=== PATIENT | female | born 1935 | race Caucasian/White ===

== ENCOUNTER 2016-05-15 09:30 | Inpatient (IN) | payer MEDICARE ==
[~2016-05-15] VITALS: Ht 162.6 cm; Wt 91.1 kg
[2016-05-15] VITALS (7 sets, daily range): BP systolic 120–162; BP diastolic 55–77; PULSE 31–58; RESP 12–22; O2SAT 94–97
--- NOTE | 2016-05-15 09:39 | ED.REPORT ---
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 She went to a doctor's appointment yesterday and was told she needs a pacemaker. Her heart rate is in the 40's. Associated symptoms include chest heaviness which increases with exertion. She feels like her legs are very heavy. She has had 3 recent episodes of LOC. Nursing Notes Stated Complaint: SOB Chief Complaint: Respiratory Distress Nursing Notes Reviewed: Yes Allergies: Coded Allergies: codeine (Verified Allergy, Unknown, 05/15/16) hydrocodone (Verified Allergy, Unknown, 05/15/16) thiethylperazine (Verified Allergy, Unknown, 05/15/16) Uncoded Allergies: GUAFENESIN (Allergy, Unknown, 05/15/16) Scheduled Aspirin (Aspirin) 81 Mg Tablet 81 MG PO DAILY Levothyroxine (Levothyroxine) 100 Mcg Tablet 100 MCG PO QAM Liothyronine Sodium (Liothyronine Sodium) 5 Mcg Tablet 10 MCG PO QPM Losartan/HCTZ 100-25 mg (Losartan/HCTZ 100-25 mg) 1 Each Tablet 1 EACH PO DAILY at 1300 General Time Seen by MD: 09:38 Chief Complaint Shortness of breath Hx Obtained From: Patient Arrived By: Walk-in Sudden in Onset?: Yes Onset Occurred: Yesterday Symptom Duration: Since onset Severity: Current: No pain currently Recent Healthcare: Recent doctor visit Similar Sx Previous: Yes Past Medical History Past Medical History 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 GI: Reports: Nausea Physical Exam Physical Exam Notes: Initial Vital Signs Vital Signs (First) Date Time Temp Pulse Resp B/P Pulse Ox O2 Delivery O2 Flow Rate FiO2 05/15/16 09:32 36.6 40 22 96 Room Air 05/15/16 11:19 130/63 Initial VS: Reviewed Head / Eyes: Atraumatic, Normocephalic, PERRL ENT: Mucous membranes moist, Conjunctiva normal Abdomen / GI: Soft, Non-tender, No guarding Extremities: Vascular intact, Neuro intact, No swelling Skin: Warm, Dry General/Constitutional: Awake, Alert Neck: Atraumatic, Supple, Non-tender Respiratory / Chest: Atraumatic, No rales, No rhonchi, No chest tenderness Cardiovascular: Regular rhythm, Heart sounds NL Heart Rate / Rhythm: Positive: Bradycardia Lower Extremity / Pelvis / MS: Inspection NL trace peripheral edema Interpretation & Diagnostics Lab Results Interpretation Result Diagram: 05/15/16 1008 05/15/16 1008 Test 05/15/16 10:08 White Blood Count 9.1th/mm3 (3.8-10.1) Red Blood Count 4.91mil/mm3 (3.90-5.20) Hemoglobin 14.4g/dL (12.0-15.6) Hematocrit 43.2% (35.0-46.0) Mean Corpuscular Volume 88.0fL (81-100) Mean Corpuscular Hemoglobin 29.3pg (27.0-35.0) Mean Corpuscular Hemoglobin Concent 33.3% (32.0-37.0) Red Cell Distribution Width 14.0% (12.3-15.4) Platelet Count 255bil/L (150-400) Neutrophils (%) (Auto) 56.3% (40-74) Lymphocytes (%) (Auto) 31.9% (14-46) Monocytes (%) (Auto) 6.7% (4-12) Eosinophils (%) (Auto) 3.9% (0-5) Basophils (%) (Auto) 0.9% (0-3) Sodium Level 139mEq/L (134-144) Potassium Level 3.6mEq/L (3.5-5.2) Chloride Level 101mEq/L (97-108) Carbon Dioxide Level 21mmol/L (18-29) Blood Urea Nitrogen 15mg/dL (8-27) Creatinine 0.80mg/dL (0.57-1.00) Estimat Glomerular Filtration Rate 99mL/min (>59) Glucose Level 135mg/dL (60-99) Calcium Level 10.1mg/dL (8.5-10.1) Magnesium Level 2.0mg/dL (1.6-2.6) Total Bilirubin 0.6mg/dL (0.0-1.2) Aspartate Amino Transf (AST/SGOT) 37U/L (0-50) Alanine Aminotransferase (ALT/SGPT) 44U/L (0-32) Alkaline Phosphatase 54U/L (25-165) Troponin T < 0.010ug/L (0.0-0.011) Pro-B-Type Natriuretic Peptide 69.19pg/mL (0-738) Total Protein 7.6g/dL (6.4-8.4) Albumin 4.6g/dL (3.4-5.0) Thyroid Stimulating Hormone (TSH) 1.580uIU/mL (0.450-4.500) ECG Interpretation ECG Interpretation: RBBB LPFB Time: 09:43 Interpreted by: ED physician Rhythm / Conduction: Bradycardia (38) X-Ray Chest Interpretation Chest Xray Interpretation: IMPRESSION: No acute disease Dictated by: Mekhi Bautista M.D. on 05/15/2016 at 10:57 Approved by: Mekhi Bautista M.D. on 05/15/2016 at 10:57 View: Portable Interpretation / Wet Read by: Interpret - Radiologist Re-Eval/Medical Decision Re-Evaluation/Progress #1: Time of Eval: 12:20 Re-Evaluation/Progress Note: Pt rechecked. Informed pt of need for US, admission to hospital, and possibility of pacemaker insertion tomorrow. Pt understands and agrees with plan. All questions addressed. Re-Evaluation/Progress #2: Time of Eval: 12:24 Re-Evaluation/Progress Note: payroll technician watched the pt, she was able to walk 20 ft. She was very dyspneic and feels like she has to sit down. Her heart rate never goes above 35. Consultation #1: Referral / Consult Name: Saumya Campbell MD Consulted With: Cardiology Call Returned at: 12:20 Vba Developer: Agrees with eval, Agrees with plan Note: Case discussed. Dr. Campbell will see the patient at the ED. Consultation #2: Referral / Consult Name: Cong Olivares DO Consulted With: Hospitalist Call Returned at: 13:50 Vba Developer: Accepts admit Note: Case discussed. Dr. Cong Olivares accepts admit. Counseled Regarding: Diagnosis, Lab results, Need for admission Discharge & Departure Impression: Primary Impression: Bradycardia Disposition: ADMITTED TO HOSPITAL Discharge Condition All VS Reviewed: Yes Condition: Stable Referrals: Sandra Gonzalez MD (PCP) Lawandaibbruno Attestation Portion of this note were transcribed by Beatris Archer. I, Dr. Ladd, personally performed the history, physical exam, and medical decision-making: I reviewed and confirmed the accuracy for the information in the transcribed note. Signed by: idalia Maria, 06/04/16 1300 copies to: Sandra Gonzalez MD, Kirk H MD May 15, 2016 09:39 Beatris Archer May 15, 2016 09:48
[2016-05-15 10:16] LABS: BASOPHILS % (AUTO) 0.9 % (0-3); EOSINOPHILS % (AUTO) 3.9 % (0-5); MONOCYTES % (AUTO) 6.7 % (4-12); Mean Corpuscular Hemoglobin 29.3 pg (27.0-35.0); NEUTROPHILS % (AUTO) 56.3 % (40-74); Platelet Count 255 bil/L (150-400)
[2016-05-15 10:56] LABS: TROPONIN T < 0.010 ug/L (0.0-0.011)
--- NOTE | 2016-05-15 10:58 | DRSVH ---
PROCEDURE: X-RAY CHEST ONE VIEW, PORTABLE ([id number]) INDICATIONS: sob TECHNIQUE: One view of the chest was acquired. COMPARISON: None. FINDINGS: Surgical changes and devices: None. Lungs and pleura: No pleural effusions or pneumothorax. Lungs are clear. Mediastinum: Mediastinal contours appear normal. Heart size is normal. Bones and chest wall: No suspicious bony lesions. Overlying soft tissues appear unremarkable. IMPRESSION: No acute disease Dictated by: Mekhi Bautista M.D. on 05/15/2016 at 10:57 Approved by: Mekhi Bautista M.D. on 05/15/2016 at 10:57
[2016-05-15] MEDS ORDERED: LEVO100T6 PO (13:44)
[2016-05-15] MEDS ORDERED: ASPI-973 PO (13:44)
[2016-05-15] MEDS ORDERED: LOSA1TAB70 PO (13:44)
[2016-05-15] MEDS ORDERED: LIOT5TAB3 PO (13:44)
[2016-05-15] MEDS ORDERED: Ondansetron 2 mg/mL 2 mL Inj IVPUSH PRN ×2 (14:50→16:25)
[2016-05-15] MEDS ORDERED: Alum-Mag Hydrox-Simeth 30 mL Suspension PO PRN ×2 (14:50→16:25)
[2016-05-15] MEDS ORDERED: Polyethylene Glycol (PEG) 17 Gm Powder PO PRN (16:25)
[2016-05-15] MEDS ORDERED: Heparin 5,000 Unit/mL Inj SUBQ SCH (16:30)
--- NOTE | 2016-05-15 16:38 | PCM.HPMED ---
Subjective Date of Service May 15, 2016 Primary Provider: Admitting Physician: Cong Olivares DO Primary Care Physician: Sandra Gonzalez MD Attending Physician: Cong Olivares DO Chief Complaint: Shortness of breath and dyspnea on exertion. History of Present Illness: This is a 80-year-old female with a past medical history of hypertension, hypothyroid, remote colon cancer, history of second-degree AV block who presents with a greater than one month history of increasing shortness of breath and dyspnea on exertion. She has been seen 3 times in the last year for syncopal episodes in [place] with various diagnoses. She was recently seen by her primary care physician who told her she will need a pacemaker. She has had increasing shortness breath over the last couple days heavy chest. Some nausea, no vomiting. She has had some dry hacking cough. She denies any headaches, vision changes, chest pain, abdominal pain diarrhea constipation fevers chills rashes lesions, anxiety or depression. No recent medication changes. Review of Systems: Further 12 point review of systems, as in history of present illness otherwise negative Allergies Coded Allergies: codeine (Verified Allergy, Unknown, 05/15/16) hydrocodone (Verified Allergy, Unknown, 05/15/16) thiethylperazine (Verified Allergy, Unknown, 05/15/16) Uncoded Allergies: GUAFENESIN (Allergy, Unknown, 05/15/16) Home Medications Levothyroxine, levothyroxine, aspirin, losartan/hydrochlorothiazide PMH Hypertension History of second-degree AV block Colon cancer in 1999 status post chemotherapy, partial colectomy. Hypothyroidism Surgical History Partial colectomy, appendectomy, hysterectomy, tonsils and adenoids Family History Mother at age 72 of an DE, father in his 70s of brain cancer. No other significant family medical history. Social History Hx Alcohol Use: No Hx Substance Use: No Smoking Status: Former Smoker (crit 35 years ago, smoked for a total of 10 years periodically) Exam Vital Signs Vital Sign - Last Date Time Temp Pulse Resp B/P Pulse Ox O2 Delivery O2 Flow Rate FiO2 05/15/16 15:39 36.7 33 16 162/61 97 Room Air Exam General: Alert, Oriented X3 NAD Head: Normocephalic, atraumatic Eyes: MONICA, EOMI, no scleral Icterus Oropharynx: pink moist oral mucosa Neck: supple, enlarged thyroid, trachea midline, no adenopathy Chest: clear to auscultation B/L, no wheezing rales or rhonchi Heart: Bradycardic, regular rhythm. Normal S1, S2, no murmurs noted Abdomen: soft, non-tender. Bowel sounds are normoactive. No guarding or rebound. Extremities: no cyanosis, clubbing or edema. No acute joint inflammation. Skin: no acute rashes or lesions noted Neuro: Cranial nerves II-XII intact, no focal findings. Psych: normal judgement and insight. Lab and Diagnostics Result Diagram: 05/15/16 1008 05/15/16 1008 Assessment & Plan This is a 80-year-old female with past medical history of second-degree AV block , hypertension and remote colon cancer presents with bradycardia in the 30s. Cardiology has been consulted and plans for pacemaker placement likely 2016. Bradycardia, symptomatic. Present on admission: -Admit for close observation, follow on telemetry -Cardiology has been consulted from the emergency room. -Magnesium, potassium, TSH all within normal limits -Nothing by mouth after midnight Hypertension: -Continue losartan and hydrochlorothiazide. Remote history of colon cancer: -Status post partial colectomy and chemotherapy in 1999. Present stable. CODE STATUS: DO NOT RESUSCITATE/DO NOT INTUBATE DVT prophylaxis: Heparin 3 times a day Disposition: Pending hospital course, she is independent with her ADLs. Time spent 60 minutes Cong Olivares DO May 15, 2016 16:38
--- NOTE | 2016-05-15 18:43 | NUR ---
Admit note Patient admitted to 2029 from [facility] ER via bed, amb in room, steady gait. Patient A/O x 4, denies chest pain, dizziness or sob. VSS, tele 2nd degree HB, SB 30's. Patient oriented to call light, tv, phone, bathroom and poc. Admit done per Admit RN.
[2016-05-15] MEDS ORDERED: 0.9% Sodium Chloride 1,000 ML IV PRN (21:12)
--- NOTE | 2016-05-15 22:48 | CONS ---
[address] [address] CONSULTATION REPORT PATIENT: JEFFREY TORRES : 1935 MR#: [id number] ADMIT: 05/15/2016 JOB ID: [id number] DATE OF SERVICE: 05/15/2016 REFERRING PHYSICIAN: Saumya Campbell MD OTHER DOCTOR: Cong Olivares MD INDICATION: Symptomatic bradycardia. HISTORY OF PRESENT ILLNESS: The patient is a 80-year-old woman with a history of intermittent second-degree heart block, and previous evaluation following syncopal episodes in 2013, presenting with progressive dyspnea on exertion, and lightheadedness, with finding of more persistent second-degree AV block with 2-1 conduction. She has been aware of problems with her heart rhythm since she was a teenager, initially with some palpitations. She was told of some issue with her heart valve at that time. She has not had any specific cardiac therapy or evaluation until 2-3 years ago when she had episodes of syncope. At that time, she was taking verapamil for hypertension and this was discontinued, and she did well until the last several weeks when she felt like she "hit the wall" with shortness of breath walking upstairs. She did undergo cardiac evaluation in 2013 which demonstrated normal echocardiogram and normal stress echo. Ambulatory monitor showed some PACs and PVCs. There was some documented transient second-degree AV block. This resolved on followup at that time. She has a history of hypertension, most recently taking losartan 100 mg/hydrochlorothiazide 25 mg. She has history of hypothyroidism, euthyroid with a normal TSH on replacement with levothyroxine and Liothyronine. She takes baby aspirin daily. She was briefly on therapy with metformin but advised by her [facility] [place] that her sugars were controlled and this was discontinued. There is no history of angina, strokes, cerebrovascular disease or peripheral vascular disease. She has been on atorvastatin for hyperlipidemia. She does not have any family history of premature heart disease. She had been a cigarette smoker years ago, not currently smoking. She has a history of colon cancer with colectomy which was apparently complicated with prolonged hospitalization 17 years ago. She had a port for chemotherapy in her right subclavian area which caused her significant pain. This was removed after a year. She has not had any evidence of recurrent disease or metastases and has not had any radiation therapy. She has had periodic screening with colonoscopies. She has had MRIs but believes this was done at the time of evaluation of her syncope. MEDICATIONS: 1. Levothyroxine 125 mg daily. 2. Liothyronine 5 mcg daily. 3. Losartan 100 mg/hydrochlorothiazide 25 mg daily. 4. Aspirin 81 mg daily. 5. Atorvastatin 20 mg daily. ALLERGIES: Sensitive to CODEINE (nausea and vomiting). PAST MEDICAL HISTORY: As above. PAST SURGICAL HISTORY: Partial colectomy, appendectomy, hysterectomy, tonsillectomy. FAMILY HISTORY: Mother in her 70s with heart disease, father of cancer. SOCIAL HISTORY: Patient denies alcohol use or current smoking. Two of her daughters are present during the examination. REVIEW OF SYSTEMS: A 12 point review of systems noncontributory except as above. PHYSICAL EXAMINATION: Cardiovascular examination shows a pleasant, moderately overweight woman, comfortable, alert and oriented. There is no conjunctival pallor or icterus. There is no facial asymmetry. ENT: Grossly normal. There is no thyromegaly or nodules. There is some scarring on this skin over her suprasternal notch. There is a tattoo on her left pectoral area. Chest is resonant to percussion, clear to auscultation. Heart rhythm is slow, 36, with no murmurs or gallops appreciated. Lungs are clear without any rales or wheezes. Abdomen is obese and nontender. There are no bruits. Pedal pulses are full. Neurologic examination is grossly normal. The patient is alert and oriented. DIAGNOSTIC DATA: Labs and x-rays are reviewed and are within normal limits. IMPRESSION: 1. Right bundle-branch block. 2. Symptomatic bradycardia with second-degree AV block. The patient was initially symptomatic at the time she was on verapamil. She is not on any agents that would affect her heart rate and has irreversible symptomatic bradycardia. Permanent pacing is warranted. 3. History of colon cancer, no evidence of recurrence post 17 years. 4. History of hypertension. 5. Hypothyroidism, on replacement. PLANS: Discussed the indications and the procedure of permanent pacer placement with the patient and her daughters. Questions are answered. The risks and perioperative management and followup are discussed with them. The patient was initially noted as a "DNR" on admission. I discussed this with her and she did not comprehend the implications of this. She wishes to be a FULL CODE and this order is corrected. This was a prolonged consultation reviewing her current [facility] Cardiology and hospital records and discussing the procedures with the patient. With her history of cancer and periodic screening, I believe that MRI conditional pacemaker would be appropriate and this is discussed with her. This was a prolonged consultation requiring 90 minutes at the bedside and clinical review. TREY
[2016-05-16] VITALS (15 sets, daily range): BP systolic 125–154; BP diastolic 51–85; PULSE 31–69; RESP 12–20; O2SAT 91–98
[2016-05-16] MEDS: Sodium Chloride LOK Flush 10 mL Syringe IVFLUSH SCH ×3 (00:30→17:01)
--- NOTE | 2016-05-16 05:19 | NUR ---
HR Range 27-53 BPM. Pt asleep. Pauses at 2 seconds. IVCD and PVC's. Pt woken and stated she feels asymptomatic unless she is at 27 BPM and she feels a bit of "discomfort." on call pharmacy technician extrusion supervisor notified at 0500. Night provider notified at 0200 at the start of the ' trend. Continue to monitor.
--- NOTE | 2016-05-16 08:28 | NUR ---
AM MEDS This am Losartan 100mg was ordered, withheld for now due to HR being 30-40's. Will discuss with MD during rounding. BP is 125/70, HR 38
[2016-05-16] MEDS ORDERED: HCTZ PO SCH (08:30)
[2016-05-16] MEDS ORDERED: LOSARTAN PO SCH (08:30)
[2016-05-16] MEDS ORDERED: Heparin 5,000 Units/500 mL NS Premix IV ONE (12:29)
[2016-05-16] MEDS ORDERED: 0.9% Sodium Chloride 250 ML ONE (12:29)
[2016-05-16] MEDS ORDERED: Bupivacaine-MPF 0.5% 30 mL Inj ONE (12:29)
[2016-05-16] MEDS ORDERED: fentaNYL-PF 50 mCg/mL 2 mL Inj ONE (13:41)
[2016-05-16] MEDS ORDERED: Ondansetron 2 mg/mL 2 mL Inj ONE (13:53)
[2016-05-16] MEDS ORDERED: CeFAZolin Inj 2 GM in IV Premix 1 EACH IV ONE (14:00)
[2016-05-16] MEDS: 0.9% Sodium Chloride 1,000 ML IV SCH (15:36)
[2016-05-16] MEDS ORDERED: Ondansetron 2 mg/mL 2 mL Inj IVPUSH PRN (15:40)
--- NOTE | 2016-05-16 16:08 | NUR ---
Social Work: Initial Assessment: Data & Assessment: See Initial Assessment. EMR reviewed. Patient is a 80 y/o female that admitted with Bradycardia per H&P. Patient alert and oriented x3. Customer Service Agent met with patient to discuss discharge planning, initial assessment complete and discharge planning discussed. Patient confirmed that her PCP is Dr. Sandra Gonzalez. Patient insurance is Medicare and patient does not have VA or LTC benefits. Patient does not have a re-admit score. patient lives home alone at [facility] no steps to enter where patient is independent at baseline. Patient has no DME. Patient has no SNF or HH history.Patient has no Advanced Directive/ DPOA and diclined the information. Patient state that her brother is an deputy prosecuting attorney and he will help her to complete. Patient NOK is Zaire Soares [phone]. No discharge needs identified at this time. SW to continue to follow if any needs arise. Plan: Anticipated discharge home via POV of brother when medically ready. No discharge needs identified at this time. SW to continue to follow if any needs arise Emerita Guillen LMSW, HELDER Addendum: 05/16/16 at 1619 by EMERITA FERNANDEZ Amended: Links added.
--- NOTE | 2016-05-16 16:27 | DRSVH ---
[facility] [address] [place] [address] Echocardiogram Report Name: JEFFREY TORRES Tom e: 05/16/2016 Height: 64 in Hospital Exam Location: [facility] Weight: 203 lb Gender: Female BSA: 2.0 m2 : 1935 Age: 80 yrs BP: 125/70 mmHg Reason For Study: Bradycardia Ordering Physician: Performed By: Ho Chaparro Referring Physician: RADHA STEINER Interpretation Summary The patient is in NSR with intermittant 2:1 AV block The left ventricle is borderline dilated. There are no focal wall motion abnormalities. The ejection fraction is estimated to be 60-65%. The right ventricle grossly appears normal in size with probable normal systolic function. The IVC is of normal diameter and collapses greater than 50% with a sniff. This suggests a low right atrial pressure of 3 mm Hg. There is no significant valvular heart disease. No other echocardiographic abnormalities seen. Procedure: A two-dimensional transthoracic echocardiogram with color flow and Doppler was performed. The study quality was technically adequate. Comparison is made with the echocardiogram of 11/24/13. The patient was in sinus bradycardia with heart rates between 32-54 bpm during the exam. The patient is in NSR with intermittant 2:1 AV block. Left Ventricle: The left ventricle is borderline dilated. There is normal left ventricular wall thickness. The ejection fraction is estimated to be 60- 65%. There are no focal wall motion abnormalities. Right Ventricle: The right ventricle grossly appears normal in size with probable normal systolic function. Atria: The left atrium is mildly dilated. The right atrium is normal in size. The interatrial septum is intact with no evidence for an atrial septal defect. Mitral Valve: The mitral valve is normal. Aortic Valve: The aortic valve is normal in structure and function. There is mild aortic regurgitation. Tricuspid Valve: The tricuspid valve is normal. The right ventricular systolic pressure is estimated at 22 mmHg assuming a right atrial pressure of 3 mm Hg. Pulmonic Valve: The pulmonic valve leaflets are thin and pliable; valve motion is normal. There is no pulmonic valvular regurgitation. Great Vessels: The aortic root is normal size. The dimensions of the ascending aorta are normal. The pulmonary artery is normal size. The IVC is of normal diameter and collapses greater than 50% with a sniff. This suggests a low right atrial pressure of 3 mm Hg. Pericardium/ Pleura There is an anterior echo-free space consistent with a fat pad. There is a trivial pericardial effusion noted. There is no pleural effusion. MMode/2D Measurements & Calculations LVIDd: 5.4 cm RA long axis LVOT diam: 2.0 cm LVIDs: 3.6 cm LA A2 area: 17.3 cm AoV Opening FS: 32.5 % LA A4 area: 26.0 cm RA area EPSS: 1.1 cm LA length (vol) Ao root diam IVSd: 0.89 cm : 14.8 cm LVPWd: 0.93 cm LA vol: 73.4 ml RA vol asc Aorta Diam LA vol index : 35.8 ml RA Ao Arch Diam (Prox : 18.2 mm2 Trans): 2.9 cm IVC diam: 1.8 cm LV donaldson. diameter/BSA LV sys. diameter/BSA RVD1 (basal) RVD2 (mid): 3.0 cm (cm/m^2): 2.7 (cm/m^2): 1.8 TAPSE: 2.4 cm Doppler Measurements & Calculations Ao V2 max: 206.6 cm/secMV E max kenny MV E/A: 0.87 TR max kenny Ao max P.1 mmHg : 76.9 cm/sec Med Peak E' Kenny : 219.4 cm/sec Ao mean P.4 mmHg MV A max kenny TR max PG LVOT Max Kenny : 88.1 cm/sec E/E' med: 21.5 : 19.3 mmHg : 170.3 cm/sec Lat Peak E' Kenny PA V2 max : 108.3 cm/sec BON(I,D): 2.4 cm E/E' lat: 12.8 PA mean PG sev ratio: 0.77 E/e' average : 2.4 mmHg AI P1/2t: 1004 msec AI dec slope : 119.4 cm/s2c MV dec time: 0.19 sec Ao V2 mean LV V1 max PG PA V2 mean : 116.6 cm/sec : 72.7 cm/sec Ao V2 VTI: 47.3 cmLV V1 VTI PA pr(Accel) BON(V,D): 2.5 cm2 : 36.4 cm : -3.5 mmHg BON indexed to BSA (cm^2/m^2): 1.2 Reading Physician:04:26 PM
--- NOTE | 2016-05-16 16:30 | DRSVH ---
PROCEDURE: X-RAY CHEST ONE VIEW, PORTABLE ([id number]) INDICATIONS: For new leads placed TECHNIQUE: One view of the chest was acquired. COMPARISON: [facility], CR, XR CHEST 1VW (PORTABLE), 05/15/2016, 10:39. FINDINGS: Surgical changes and devices: Left-sided pacer. Lungs and pleura: No pleural effusions or pneumothorax. Lungs are clear. Mediastinum: Mediastinal contours appear normal. Heart size is normal. Bones and chest wall: No suspicious bony lesions. Overlying soft tissues appear unremarkable. IMPRESSION: No acute process. Dictated by: Cora Banegas M.D. on 05/16/2016 at 16:28 Approved by: Cora Banegas M.D. on 05/16/2016 at 16:28
--- NOTE | 2016-05-16 16:33 | NUR ---
[facility] POST PACEMAKER PT WAS RECEIVED FROM AGRICULTURAL APPRAISER AT 1530. LEFT UPPER CHEST DRSG HAS REMAINED C/D/I, ICE BAG IN PLACE. DUAL CHAMBER PACEMAKER WAS PLACED AND PT IS 100% A/V PACED RATE 60. POST EKG AND CXR WERE OBTAINED. PT DENIES ANY PAIN AND IS TAKING PO FLUIDS AND VISITING WITH FAMILY. REPORT CALLED TO SHAJI Quach RN AND PT AND HER NURSING CARE WILL BE TRANSFERRED BACK TO ROOM 2030 WITHIN NEXT FEW MINUTES. Addendum: 05/16/16 at 1650 by SHEREE BAH RN PT TRANSFERRED TO [facility] ROOM 2029 AT 1645. RN TO RN BEDSIDE HANDOFF WAS DONE WITH BRANDIE Quach RN. TELE CONFIRMED WITH SUPERVISOR PLATING AND POINT ASSEMBLY.
--- NOTE | 2016-05-16 18:49 | PCM.PNMED ---
Subjective Date of Service May 16, 2016 Subjective The patient is back from having her pacemaker inserted. She is feeling much better though having some pain at the op site. She feels less shortness of breath, no nausea vomiting diarrhea or constipation. Exam Vital Signs Vital Sign - Last Date Time Temp Pulse Resp B/P Pulse Ox O2 Delivery O2 Flow Rate FiO2 05/16/16 16:48 36.8 60 16 151/85 97 Room Air Intake and Output 05/15/16 05/15/16 05/16/16 Cumulative From/Thru 15:00 23:00 07:00 05/15/16 09:32 - 05/16/16 05:56 Intake Total 400 ml 400 ml Output Total 650 ml 650 ml Balance -250 ml -250 ml Intake Oral 400 ml 400 ml Output Urine Total 650 ml 650 ml # Voids 1 1 # Bowel Movements 0 0 Exam General: Alert, Oriented X3, NAD Head: Normocephalic, atraumatic Eyes: MONICA, EOMI, no scleral Icterus Chest: clear to auscultation B/L, no wheezing rales or rhonchi Heart: Regular rate and rhythm. Normal S1, S2, no murmurs noted Abdomen: soft, non-tender. Bowel sounds are normoactive. No guarding or rebound. Extremities: no cyanosis, clubbing or edema. IVs and Medications Medications Reviewed: Medications were reviewed in detail Lab and Diagnostics Result Diagram: 05/15/16 1008 05/15/16 1008 Assessment & Plan This is a 80-year-old female with past medical history of second-degree AV block , hypertension and remote colon cancer presents with bradycardia in the 30s. Cardiology has been consulted and plans for pacemaker placement likely 2016. Bradycardia, symptomatic. Present on admission: -Patient had pacemaker placed 05/16/2016 without reported complications. Hypertension: -Continue losartan and hydrochlorothiazide. Remote history of colon cancer: -Status post partial colectomy and chemotherapy in 1999. Present stable. CODE STATUS: DO NOT RESUSCITATE/DO NOT INTUBATE DVT prophylaxis: Heparin 3 times a day Disposition: Pending hospital course, she is independent with her ADLs. Likely discharged tomorrow Cong Olivares DO May 16, 2016 18:49
[2016-05-16] MEDS: CeFAZolin Inj 2,000 MG in Dextrose 5% 50 ML IV SCH (22:23)
--- NOTE | 2016-05-16 23:14 | DI95 ---
[facility] [id number] INTERVENTIONAL CARDIAC CATHETERIZATION PATIENT: JEFFREY TORRES : 1935 MR#: [id number] ADMIT: 05/15/2016 JOB ID: [id number] DATE OF PROCEDURE: 05/16/2016 INDICATION: Second-degree AV block, symptomatic bradycardia. POSTOPERATIVE: Second-degree AV block, symptomatic bradycardia. REFERRING PHYSICIAN: 1. Saumya Campbell MD. 2. Cong Olivares MD. PROCEDURE: DDDR pacer implant (MRI conditional), conscious sedation, fluoroscopy. DEVICE: The pacemaker is a [employer] model PQ3946, serial #[id number]. Atrial lead [employer] model SUE4730Y/46, serial #[id number]. Ventricular lead [employer] model NJD4456Y/52, serial #[id number]. DESCRIPTION: Patient was brought to the cardiac catheterization lab in a fasting condition. The chest was prepped and draped in a sterile fashion. She received conscious sedation per protocol. She received antimicrobial prophylaxis. The left infraclavicular area was infiltrated with mixed 1% lidocaine and 0.5% Marcaine as local anesthetic. Using a Seldinger technique with micropuncture needles and fluoroscopic anatomic landmarks, the extrathoracic subclavian vein was punctured percutaneously with two separate sticks and guidewires were inserted. The pacer pocket was then created with sharp and blunt dissection and electrocautery, and the guidewires were tunneled into the pocket. Two 8-Polish sheaths were then inserted over the guidewires and the wires and introducers were removed. A cefazolin soaked sponge was placed in the pocket. The ventricular lead was then inserted and manipulated to the right ventricular apex with fluoroscopic guidance. The active fixation pin was advanced. Stable positioning was obtained. R-wave sensing was 7.8 mV. Lead impedance 780 ohms. Capture threshold 0.5 V and pulse width 0.5 msec. There was no diaphragmatic stimulation with 10 V pacing. The atrial lead was inserted and manipulated over a J-wire. P-wave sensing was 5 mV, lead impedance 780 ohms, capture threshold 1 V, pulse width of 0.4 msec. The peel-away sheaths were then removed and stable positioning confirmed fluoroscopically and with threshold testing. The sponge was removed from the pocket. The leads were secured with 0 Ethibond over the plastic sleeves. The pocket was flushed with a cefazolin solution. The leads were connected to the pacemaker which was placed in the pocket and secured with 0 Ethibond to the prepectoral fascia. The subcutaneous tissues were then closed with 2-0 Polysorb and subcuticular tissues closed with 4-0 Polysorb. The wound was covered with Steri-Strips, Telfa pad, and a Bioclusive dressing. The patient tolerated the procedure without any difficulty or complications. Blood loss was 10 cc. She was taken to [facility]. Follow up x-rays, device interrogation, and telemetry monitoring will be accomplished. Followup care and management were discussed with the patient and her family.
[2016-05-17] MEDS: Sodium Chloride LOK Flush 10 mL Syringe IVFLUSH SCH ×2 (00:30→08:31)
[2016-05-17] MEDS: 0.9% Sodium Chloride 1,000 ML IV SCH (01:36)
--- NOTE | 2016-05-17 01:43 | NUR ---
Mobility Pt able to get with with 1PA to keep left arm immobilized. Walks SBA without issues.
[2016-05-17 04:32] VITALS: BP 139/75; PULSE 63; RESP 20; O2SAT 93
[2016-05-17] MEDS: CeFAZolin Inj 2,000 MG in Dextrose 5% 50 ML IV SCH (05:33)
[2016-05-17 05:46] VITALS: PULSE 66
[2016-05-17 07:51] VITALS: PULSE 66
[2016-05-17 09:09] VITALS: BP 139/83; PULSE 70; RESP 16; O2SAT 94
--- NOTE | 2016-05-17 10:02 | PCM.PNCARD ---
Subjective Date of service May 17, 2016 Chief Complaint symptomatic bradycardia History of Present Illness 80 yo W admitted with symptomatic bradycardia from second degree type 2 AV block. Subjective: Patient had pacemaker placed yesterday and tolerated the procedure well. She feels better today and has no questions. She is eager to go home. PROBLEM LIST: # Second degree type 2 heart block # HTN Exam Vital Signs Vital Sign - Last Date Time Temp Pulse Resp B/P Pulse Ox O2 Delivery O2 Flow Rate FiO2 05/17/16 09:09 36.7 70 16 139/83 94 Room Air Intake and Output 05/16/16 05/16/16 05/17/16 Cumulative From/Thru 15:00 23:00 07:00 05/15/16 09:32 - 05/17/16 06:43 Intake Total 1040 ml 100 ml 1540 ml Output Total 1750 ml 400 ml 2800 ml Balance -710 ml -300 ml -1260 ml Intake Oral 640 ml 1040 ml IV Total 400 ml 100 ml 500 ml Output Urine Total 1750 ml 400 ml 2800 ml # Voids 1 # Bowel Movements 0 General appearance: No apparent distress, well-nourished, pleasant, cooperative HEET: Normocephalic atraumatic, no scleral icterus, tongue midline, mucous membranes moist Neck: supple Cardiovascular: RRR, no JVD, no peripheral edema Respiratory: talking in complete sentences Abdomen: Soft, nontender, nondistended, + bowel sounds Neuro: Alert, no facial droop, tongue midline, no gross motor deficits Psych: appropriate affect Skin: right upper chest with pacemaker bandage and without any swelling or ecchymosis Lab and Diagnostics Result Diagram: 05/15/16 1008 05/15/16 1008 Assessment & Plan Assessment 80 yo W admitted with symptomatic bradycardia from second degree type 2 AV block s/p permanent pacemaker implantation 05/16/2016. Patient feels good after pacemaker implantation and her insertion site looks unremarkable. Pacemaker is functioning well based on interrogation. Chest x-ray looks unremarkable. I reviewed pacemaker insertion post procedural care with the patient and her daughter and answered the questions. Follow-up with device clinic in one week and with Dr. Barney in 3-6 months. Problems: Saumya Campbell MD May 17, 2016 10:02
--- NOTE | 2016-05-17 10:36 | PCM.DIMED ---
Discharge Instructions Date of Service May 17, 2016 Dates of Hospitalization May 15, 2016 at 14:29 Discharge Diagnosis Discharge Diagnosis Dramatic bradycardia with second-degree block Diet No restrictions Activity Limited until seen by PCP Call your provider Fever or Chills, Shortness of breath, Chest pain, Weakness (unilateral) Patient Instructions Follow-up plan Follow-up with PCP in one week Follow-up with cardiology in 1-2 weeks Cong Olivares DO May 17, 2016 10:36
--- NOTE | 2016-05-17 11:17 | DRSVH ---
PROCEDURE: X-RAY CHEST, TWO VIEWS ([id number]) INDICATIONS: For new lead placement TECHNIQUE: 2 views of the chest were acquired. COMPARISON: [facility], CR, XR CHEST 1VW (PORTABLE), 05/16/2016, 16:05. FINDINGS: Surgical changes and devices: Dual-chamber cardiac pacemaking device and leads appear normal Lungs and pleura: No pleural effusions or pneumothorax. Lungs are clear. Mediastinum: Mediastinal contours are normal. Heart size is normal. Bones and chest wall: No suspicious bony abnormalities. Soft tissues appear unremarkable. IMPRESSION: Pacemaker appears normal, no pneumothorax, no sign of CHF. Dictated by: Harry Escoto M.D. on 05/17/2016 at 11:15 Approved by: Harry Escoto M.D. on 05/17/2016 at 11:16
--- NOTE | 2016-05-17 11:47 | NUR ---
Social Work: Discharge D: Pt discussed in am rounds. Pt is medically stable for discharge home. Pt has finalized orders. EMR reviewed; Pt has been ambulating I during admission. TRACK HELPER met with pt and family at bedside to assess for unmet needs or d/c barriers. Pt confirms she is ready to d/c home and is eager to leave. She expresses no concerns about discharge and states her family will be transporting her. Pt lives at home, alone in an apartment. Family lives nearby and will assist as needed. A: Pt who is I at baseline P: Pt to discharge home via POV; no social work needs at this time. ANGELA Suárez
[2016-05-17 12:27] VITALS: BP 166/64; PULSE 68; O2SAT 94
--- NOTE | 2016-05-17 13:00 | NUR ---
Discharge Pt discharged at 1230 with daughter via private car. No changes in medications and pt stated earlier she likes to take her BP meds in the afternoon so she didn't get this am dose but will take them as soon as she gets home. All instructions gone over and understood, follow up apts made, and all belongings taken with. IV x2 and tele removed.
--- NOTE | 2016-05-17 19:33 | PCM.DC.MED ---
Discharge Summary Date of Service May 17, 2016 Dates of Hospitalization Date of Hospital Admission May 15, 2016 at 14:29 Date of Discharge: May 17, 2016 Providers: Admitting Physician: Cong Olivares DO Primary Care Physician: Sandra Gonzalez MD Attending Physician: Cong Olivares DO Diagnosis at Time of Discharge Diagnosis at Time of Discharge Dramatic bradycardia with second-degree block Consultations Cardiology Procedures Invasive Procedures Pacemaker implantation Brief History 80 yo W admitted with symptomatic bradycardia from second degree type 2 AV block. Hospital Course This is a 80-year-old female with past medical history of second-degree AV block , hypertension and remote colon cancer presents with bradycardia in the 30s. Cardiology was consulted, the patient was watched on telemetry overnight and underwent pacemaker implantation 05/16/2016 without any reported complications. She was watched overnight and the following day her katherine maker was interrogated and was functioning properly. She was discharged home in stable condition feeling significantly better with less shortness of breath, dizziness etc. She will need follow-up with her primary care physician within one week, sooner if her condition worsens in anyway. She is also instructed to follow-up with cardiology in 2-4 weeks. Delineated problem list as below Bradycardia, symptomatic. Present on admission: -Patient had pacemaker placed 05/16/2016 without reported complications. Hypertension: -Continue losartan and hydrochlorothiazide. Remote history of colon cancer: -Status post partial colectomy and chemotherapy in 1999. Present stable. Exam Vital Signs (Last) Date Time Temp Pulse Resp B/P Pulse Ox O2 Delivery O2 Flow Rate FiO2 05/17/16 12:27 36.5 68 166/64 94 Room Air 05/17/16 09:09 16 Test 05/15/16 10:08 05/15/16 15:03 White Blood Count 9.1th/mm3 (3.8-10.1) Red Blood Count 4.91mil/mm3 (3.90-5.20) Hemoglobin 14.4g/dL (12.0-15.6) Hematocrit 43.2% (35.0-46.0) Mean Corpuscular Volume 88.0fL (81-100) Mean Corpuscular Hemoglobin 29.3pg (27.0-35.0) Mean Corpuscular Hemoglobin Concent 33.3% (32.0-37.0) Red Cell Distribution Width 14.0% (12.3-15.4) Platelet Count 255bil/L (150-400) Neutrophils (%) (Auto) 56.3% (40-74) Lymphocytes (%) (Auto) 31.9% (14-46) Monocytes (%) (Auto) 6.7% (4-12) Eosinophils (%) (Auto) 3.9% (0-5) Basophils (%) (Auto) 0.9% (0-3) Sodium Level 139mEq/L (134-144) Potassium Level 3.6mEq/L (3.5-5.2) Chloride Level 101mEq/L (97-108) Carbon Dioxide Level 21mmol/L (18-29) Blood Urea Nitrogen 15mg/dL (8-27) Creatinine 0.80mg/dL (0.57-1.00) Estimat Glomerular Filtration Rate 99mL/min (>59) Glucose Level 135mg/dL (60-99) Calcium Level 10.1mg/dL (8.5-10.1) Magnesium Level 2.0mg/dL (1.6-2.6) Total Bilirubin 0.6mg/dL (0.0-1.2) Aspartate Amino Transf (AST/SGOT) 37U/L (0-50) Alanine Aminotransferase (ALT/SGPT) 44U/L (0-32) Alkaline Phosphatase 54U/L (25-165) Troponin T < 0.010ug/L (0.0-0.011) Pro-B-Type Natriuretic Peptide 69.19pg/mL (0-738) Total Protein 7.6g/dL (6.4-8.4) Albumin 4.6g/dL (3.4-5.0) Thyroid Stimulating Hormone (TSH) 1.580uIU/mL (0.450-4.500) Hold Urine Received (Received) Discharge Medications Discharge Medications Aspirin (Aspirin) 81 Mg Tablet 81 MG PO DAILY (Reported) Levothyroxine (Levothyroxine) 100 Mcg Tablet 100 MCG PO QAM (Reported) Liothyronine Sodium (Liothyronine Sodium) 5 Mcg Tablet 10 MCG PO QPM (Reported) Losartan/HCTZ 100-25 mg (Losartan/HCTZ 100-25 mg) 1 Each Tablet 1 EACH PO DAILY (Reported) at 1300 Followup Plan Follow-up plan Follow-up with PCP in one week Follow-up with cardiology in 1-2 weeks Discharge Diet: No restrictions Discharge Activity: Limited until seen by PCP Follow-up with PCP in: 1 week Time spent 35 minutes Cong Olivares DO May 17, 2016 19:33
== END 2016-05-17 12:49 | disposition home or self-care (01) | DRG 244 ==
LOC: SED 09:30 → PCC 13:36 → UNDOADMIN 13:36 → PCC 14:29
PROVIDERS: ADMIT Family Medicine; ATTEND Family Medicine
PROC: 0JH606Z Insertion of Pacemaker, Dual Chamber into Chest Subcutaneous Tissue and Fascia, Open Approach (ICD-10-PCS; principal; 2016-05-16)
PROC: 02H63JZ Insertion of Pacemaker Lead into Right Atrium, Percutaneous Approach (ICD-10-PCS; 2016-05-16)
PROC: 02HK3JZ Insertion of Pacemaker Lead into Right Ventricle, Percutaneous Approach (ICD-10-PCS; 2016-05-16)
DX: I44.1 Atrioventricular block, second degree (principal); R00.1 Bradycardia, unspecified; Z79.82 Long term (current) use of aspirin; Z85.038 Personal history of other malignant neoplasm of large intestine; Z87.891 Personal history of nicotine dependence; I10 Essential (primary) hypertension; I45.10 Unspecified right bundle-branch block